=== PATIENT | male | born 1990 | race Caucasian/White ===

== ENCOUNTER 2022-05-13 22:09 | Emergency (ER) | payer MEDICAID, OTHER, SELFPAY ==
[2022-05-13 22:31] VITALS: BP 123/76; PULSE 100; RESP 18; TEMP 36.5; O2SAT 98; BMI 28.2
== END 2022-05-13 23:56 | disposition left against medical advice (07) ==
PROVIDERS: Emergency Provider Emergency Medicine; PCP Family Medicine
CPT/HCPCS: 99281